=== PATIENT | female | born 1955 | race American Indian/Alaskan Native ===

== ENCOUNTER 2018-09-16 09:17 | Outpatient (CLI) | payer OTHER ==
--- NOTE | 2018-09-16 10:40 | XRay Report ---
LEFT WRIST X-RAY, 2 VIEWS INDICATION: OSTEOARTHRITIS IN KNEE AND HANDS, DISABILITY EXAM. COMPARISON: None. FINDINGS: Mild osteopenia is evident. No evidence for fracture, dislocation, ligamentous injury or irving ne lesion. No significant degenerative changes. IMPRESSION: Osteopenia. Otherwise unremarkable left wrist. LEFT KNEE, 2 VIEWS INDICATION: OSTEOARTHRITIS IN KNEE AND HANDS, DISABILITY EXAM. COMPARISON: None. FINDINGS: Mild osteopenia is evident. Moderate medial compartment joint space narrowing is identifie d. Mild degenerative changes in the patellofemoral space. There is relative sparing of the lateral co mpartment. No evidence for fracture, bone lesion or significant joint effusion. IMPRESSION: Osteopenia. 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 LEFT HAND, 2 VIEWS INDICATION: OSTEOARTHRITIS IN KNEE AND HANDS, DISABILITY EXAM. COMPARISON: None. FINDINGS: Mild osteopenia. No evidence for fracture, malalignment or bony erosions. No significant os teoarthritis. The soft tissues are unremarkable. IMPRESSION: Osteopenia, otherwise, unremarkable left hand. Signer Name: Dandre Khalil Jr, MD Signed: 09/16/2018 9:36 AM Workstation Name: [id number]
== END 2018-09-16 09:18 | disposition home or self-care (01) ==
LOC: XRAY 09:17
PROVIDERS: ATTEND Internal Medicine
DX: Z02.71 Encounter for disability determination (principal); M17.0 Bilateral primary osteoarthritis of knee; M19.042 Primary osteoarthritis, left hand; M19.041 Primary osteoarthritis, right hand; M85.861 Other specified disorders of bone density and structure, right lower leg; M85.862 Other specified disorders of bone density and structure, left lower leg; M85.842 Other specified disorders of bone density and structure, left hand; M85.841 Other specified disorders of bone density and structure, right hand; I10 Essential (primary) hypertension; K21.9 Gastro-esophageal reflux disease without esophagitis; E66.9 Obesity, unspecified